=== PATIENT | female | born 1945 | race American Indian/Alaskan Native ===

== ENCOUNTER 2019-01-24 06:18 | Day surgery (SDC) | payer MEDICARE ==
[2019-01-24] MEDS ORDERED: NACL 0.9% 500 ML 500 ML IV SCH (07:00)
[2019-01-24 08:41] LABS: Basophils # (Auto) 0.1 K/mm3 (0.0-0.1); Basophils % (Auto) 0.8 % (0.0-1.8); Eosinophils % (Auto) 0.3 % (0.0-4.3); Hemoglobin 12.5 gm/dl (10.1-14.3); Lymphocytes # (Auto) 0.8 K/mm3 (1.2-5.4); Lymphocytes % (Auto) 11.6 % (13.4-35.0); Mean Corpuscular HGB Conc 33 % (30-34); Mean Corpuscular Volume 88 fl (79-97); Monocytes # (Auto) 0.6 K/mm3 (0.0-0.8); Monocytes % (Auto) 9.3 % (0.0-7.3); Platelet Count 195 K/mm3 (140-440); Red Blood Count 4.34 M/mm3 (3.65-5.03); Red Cell Distribution Width 19.8 % (13.2-15.2)
[2019-01-24 08:54] LABS: INR 1.05 (0.87-1.13); Partial Thromboplastin Time 23.3 Sec. (24.2-36.6)
[2019-01-24 08:58] LABS: Calcium 9.1 mg/dL (8.4-10.2)
[2019-01-24] MEDS ORDERED: XYLOCAINE 2% INFILTRATI ONE (09:38)
[2019-01-24] MEDS ORDERED: SUBLIMAZE ONE (09:38)
[2019-01-24] MEDS ORDERED: HEPARIN/NS 5000 UNIT/500ML(CATH LAB) 1,000 ML IR ONE (09:38)
[2019-01-24] MEDS ORDERED: VERSED ONE (09:38)
[2019-01-24] MEDS ORDERED: APRESOLINE ONE (10:29)
--- NOTE | 2019-01-24 10:43 | Short Stay Summary ---
Short Stay Documentation Date of service: 01/24/19 - History H&P: obtained from office - Allergies and Medications Current Medications: Allergies No Known Allergies Allergy (Verified 01/24/19 06:51) Home Medications Medication Instructions Recorded Confirmed Last Taken Type AtorvaSTATin [Lipitor] 40 mg PO QHS 01/24/19 01/24/19 01/23/19 History Carvedilol [Coreg] 2 tab PO BID 01/24/19 01/24/19 01/24/19 04:30 History Furosemide [Lasix TAB] 2 tab PO BID 01/24/19 01/24/19 01/24/19 04:30 History Irbesartan [Avapro] 300 mg PO QDAY 01/24/19 01/24/19 01/24/19 04:30 History Levalbuterol 2 puff IH Q6H 01/24/19 01/24/19 01/24/19 04:30 History Omeprazole 20 mg PO QDAY 01/24/19 01/24/19 01/24/19 04:30 History Spironolactone [Aldactone] 25 mg PO QDAY 01/24/19 01/24/19 01/24/19 04:30 History amLODIPine [Norvasc] 10 mg PO BID 01/24/19 01/24/19 01/24/19 04:30 History hydrALAZINE [Apresoline TAB] 100 mg PO TID 01/24/19 01/24/19 01/24/19 04:30 History Active Medications Sodium Chloride (Nacl 0.9% 500 Ml) 500 mls @ 50 mls/hr IV DIRECT SONYA Stop: 01/24/19 16:59 Last Admin: 01/24/19 09:55 Dose: 50 mls Documented by: - Physical exam General appearance: no acute distress Integumentary: no rash HEENT: Atraumatic Lungs: Clear to auscultation Heart: Regular rate Gastrointestinal: normal Extremities: abnormal (bilateral edema) - Brief post op/procedure progress note Date of procedure: 01/24/19 Pre-op diagnosis: Shortness of breath Post-op diagnosis: same Procedure: LHC, RHC and LV gram Anesthesia: MAC Findings: See report Surgeon: ALMA PABLO Estimated blood loss: none Pathology: none Condition: stable - Hospital course Hospital course: Uneventful - Disposition Condition at discharge: Good Disposition: DC-01 TO HOME OR SELFCARE Short Stay Discharge Plan Activity: no driving until cleared by PCP (for 2 days) Weight Bearing Status: Non-Weight Bearing (for 2 days) Diet: low fat, low cholesterol, low salt Wound: keep clean and dry [facility] Provider[facility] - 7 Days
[2019-01-24] MEDS ORDERED: TYLENOL ONE (11:22)
[2019-01-24] MEDS ORDERED: TYLENOL PO ONE (11:30)
--- NOTE | 2019-01-24 12:56 | Cardiac Catherization Report ---
ORDERING PHYSICIAN: Khadijah Stevens MD INDICATION: Shortness of breath, right ventricular pressure and volume overload by echocardiogram. PROCEDURES PERFORMED: 1. Selective left and right coronary angiography. 2. Left ventriculography. 3. Right heart catheterization with hemodynamic measurement and oxygen saturation run. DESCRIPTION OF PROCEDURE: After obtaining written consent, the patient was draped using sterile technique. 2% lidocaine was injected into the right groin. Using micropuncture needle, a 5-Mosotho vascular sheath was inserted into the right femoral artery and 8-Mosotho vascular sheath was inserted into the right femoral vein. A 7-Mosotho Bandon-Senait catheter was then used to measure right-sided hemodynamics performed a thermodilution cardiac output and measure oxygen saturations. A 6-Mosotho JL4 catheter was used to selectively engage left coronary artery. A 6-Mosotho JR4 catheter was used to selectively engage the right coronary artery. A 6-Mosotho JL4 catheter was used to hand inject the left ventriculogram. No complications occurred during the procedure. Hemostasis was achieved using 6-Mosotho Angio-Seal device on the arterial side and manual pressure on the venous side. ESTIMATED BLOOD LOSS: Minimal. SPECIMEN REMOVED: None. TOTAL SEDATION ADMINISTERED: 0.5 mg of IV Versed and 25 mcg of IV fentanyl. Physician-patient [id number] sedation start time 9:56 a.m. Physician-patient [id number] sedation stop time 10:28 a.m. Total sedation time is 32 minutes. FINDINGS: HEMODYNAMICS: 1. The mean pulmonary capillary wedge pressure was 41 mmHg. The pulmonary artery systolic pressure 78 mmHg, pulmonary artery diastolic pressure 23 mmHg, mean pulmonary artery pressure 51 mmHg. 2. The right ventricular systolic pressure was 79 mmHg and the right ventricular end-diastolic pressure was 15 mmHg. 3. The mean right arterial pressure is 15 mmHg. 4. Aortic pressure was 172/72. 5. LV systolic pressure 178 mmHg, LV end diastolic pressure 23 mmHg. 6. The thermodilution cardiac output was 8.12 liters per minute. 7. The thermodilution cardiac index 4.23 liters per minute per m2. 8. The PA saturation was 71%, RV saturation 71%, RA saturation 71%, AO saturation 87%. All saturation measurements were done on 2 liter nasal cannula. 9. The transpulmonary gradient is 10 mmHg with pulmonary vascular resistance of 1.23 Sung units. CARDIAC STRUCTURES: The left ventricle is normal in size. The left ventricular ejection fraction is estimated at 50% with normal wall motion. CORONARY ANATOMY: 1. This is a right dominant circulation. 2. The left main has mild nonobstructive luminal irregularities. 3. The left anterior descending artery has mild nonobstructive luminal irregularities. There is an ostial 80% stenosis involving the first diagonal artery, not amenable to percutaneous intervention. 4. The left circumflex artery is a large caliber vessel with mild diffuse nonobstructive luminal irregularities. 5. The right coronary artery is a dominant vessel. The right coronary artery has mild diffuse nonobstructive luminal irregularities. IMPRESSION: 1. Calcified coronary anatomy with evidence of mild nonobstructive luminal irregularities noted in the main epicardial arteries. There is an 80% ostial lesion of the first diagonal artery that is not amenable to percutaneous intervention. 2. The left ventricle is normal in size with an ejection fraction estimated at 50%. 3. Evidence of high left and right-sided filling pressures with a mean pulmonary capillary wedge pressure of 41 mmHg as well as the mean RA pressure of 15 mmHg. 4. Evidence of severe pulmonary hypertension with a mean PA pressure of 51 mmHg, transpulmonary gradient of 10 mmHg and the pulmonary vascular resistance of 1.23 Sung units. 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 There is no evidence of primary or idiopathic pulmonary arterial hypertension. 5. Preserved cardiac output. 6. No evidence of an intracardiac shunt. RECOMMENDATIONS: 1. Fluid management through hemodialysis as well as medical therapy for the ostial first diagonal lesion. 2. 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 JOB# [id number] FELICITA/GERARD
[2019-01-24 13:56] VITALS: BP 165/67
== END 2019-01-24 13:15 | disposition home or self-care (01) ==
LOC: CATHLABREC 06:18
PROVIDERS: ATTEND Internal Medicine Cardiovascular Disease
DX: I25.10 Atherosclerotic heart disease of native coronary artery without angina pectoris (principal); I13.2 Hypertensive heart and chronic kidney disease with heart failure and with stage 5 chronic kidney disease, or end stage renal disease; N18.6 End stage renal disease; I50.9 Heart failure, unspecified; E78.00 Pure hypercholesterolemia, unspecified; I07.1 Rheumatic tricuspid insufficiency; I73.9 Peripheral vascular disease, unspecified; K21.9 Gastro-esophageal reflux disease without esophagitis; Z99.2 Dependence on renal dialysis; Z98.890 Other specified postprocedural states; Z98.891 History of uterine scar from previous surgery; Z79.899 Other long term (current) drug therapy; Z83.3 Family history of diabetes mellitus; Z87.891 Personal history of nicotine dependence; Z86.2 Personal history of diseases of the blood and blood-forming organs and certain disorders involving the immune mechanism; Z82.49 Family history of ischemic heart disease and other diseases of the circulatory system; Z86.73 Personal history of transient ischemic attack (TIA), and cerebral infarction without residual deficits
CPT/HCPCS: 36415; 80048; 85025; 85610; 85730; 93005; 93010; 93460; 99156; 99157; C1760; J0360; J1644; J2250; J3010; J7040; Q9967